=== PATIENT | male | born 1940 | race Caucasian/White ===

== ENCOUNTER → 2023-12-01 08:34 | Outpatient (REF) | payer MEDICARE, OTHER, SELFPAY ==
[2023-12-01 12:28] LABS: % Basophils 0.6 % (0-2); % Eosinophils 1.7 % (0-6); % Immature Granulocytes 1.1 % (0-0.5); % Lymphocytes 35.3 % (20.5-51.1); % Monocytes 11.1 % (1.7-9.3); % Neutrophils 50.2 % (42.2-75.2); Absolute Eosinophils 0.1 10^3/uL (0-0.7); Absolute Immature Granulocytes 0.1 10^3/uL (0-0.05); Absolute Lymphocytes 2.3 10^3/uL (1.2-3.4); Absolute Monocytes 0.7 10^3/uL (0.1-0.6); Absolute Neutrophils 3.3 10^3/uL (1.4-6.5); Hemoglobin 14.4 g/dL (13.0-18.0); Mean Corp Hgb Conc. 33.5 g/dL (33.0-37.0); Mean Corpuscular Hgb 31.2 pg (27.0-31.0); Mean Corpuscular Volume 93.3 fL (80.0-94.0); Mean Platelet Volume 10.2 fL (7.4-10.4); Nucleated Red Blood Cells % 0 % (-); Platelet Count 164 10^3/uL (130-400); Red Blood Cell Count 4.61 10^6/uL (4.70-6.10); Red Cell Dist. Width 13.8 % (11.5-14.5); White Blood Cell Count 6.5 10^3/uL (4.8-10.8)
[2023-12-01 12:34] LABS: Urine Albumin Negative (Neg - Trace); Urine Bilirubin Negative (Negative); Urine Character Clear (Clear); Urine Color Yellow; Urine Glucose Negative (Negative); Urine Ketone Negative (Negative); Urine Leukocyte Negative (Negative); Urine Nitrite Negative (Negative); Urine Occult Blood Negative (Negative); Urine Urobilinogen Negative (Neg - 1+)
[2023-12-01 12:45] LABS: ALT (SGPT) 19 U/L (0-50); AST (SGOT) 23 U/L (17-59); Albumin 3.9 g/dl (3.5-5.0); Alkaline Phosphatase 80 U/L (38-126); Blood Urea Nitrogen 21 mg/dl (9-20); Calcium 9.4 mg/dl (8.4-10.2); Carbon Dioxide 28 mmol/L (22-30); Chloride 104 mmol/L (98-107); Glucose 89 mg/dl (70-99); HDL Cholesterol 59 mg/dl; LDL Cholesterol, Calculated 65 mg/dl; Potassium 4.5 mmol/L (3.5-5.1); Sodium 139 mmol/L (135-145); Total Bilirubin 0.9 mg/dl (0.2-1.3); Total Cholesterol 138 mg/dl (50-199); Total Protein 6.6 g/dl (6.3-8.2); Triglyceride 74 mg/dl (10-149); Very Low Density Lipoprotein 14 mg/dl (0-30); eGFR > 60.00
[2023-12-01 12:58] LABS: Vitamin D, 25-OH*** 55.3 ng/mL (30-80)
[2023-12-01 13:12] LABS: PSA, Total - Screen 0.77 ng/ml (0.0-4.0)
== END ==
LOC: HWRAD 08:34
PROVIDERS: ATTENDING PHYSICIAN Internal Medicine Geriatric Medicine
DX: I48.21 Permanent atrial fibrillation (principal); I10 Essential (primary) hypertension; E78.2 Mixed hyperlipidemia; F41.1 Generalized anxiety disorder; K58.9 Irritable bowel syndrome, unspecified; N40.0 Benign prostatic hyperplasia without lower urinary tract symptoms; A69.20 Lyme disease, unspecified; E87.5 Hyperkalemia; Z13.89 Encounter for screening for other disorder; R19.09 Other intra-abdominal and pelvic swelling, mass and lump; Z12.5 Encounter for screening for malignant neoplasm of prostate
CPT/HCPCS: 36415; 74176; 80053; 80061; 81003; 82306; 85025; G0103

== ENCOUNTER → 2024-12-17 09:56 | Outpatient (REF) | payer MEDICARE, OTHER, SELFPAY ==
[2024-12-17 15:11] LABS: Urine Character Clear (Clear)
[2024-12-17 15:12] LABS: Hematocrit 46.7 % (39.0-52.0); Hemoglobin 15.3 g/dL (13.0-18.0); Mean Corp Hgb Conc. 32.8 g/dL (33.0-37.0); Mean Corpuscular Volume 93.2 fL (80.0-94.0); Nucleated Red Blood Cells % 0 % (-); Platelet Count 151 10^3/uL (130-400); Red Cell Dist. Width 14.5 % (11.5-14.5)
[2024-12-17 15:20] LABS: ALT (SGPT) 20 U/L (0-50); AST (SGOT) 21 U/L (17-59); Albumin 3.9 g/dl (3.5-5.0); Alkaline Phosphatase 103 U/L (38-126); Blood Urea Nitrogen 25 mg/dl (9-20); Calcium 9.6 mg/dl (8.4-10.2); Carbon Dioxide 30 mmol/L (22-30); Chloride 105 mmol/L (98-107); Glucose 93 mg/dl (70-99); HDL Cholesterol 54 mg/dl; LDL Cholesterol, Calculated 60 mg/dl; Potassium 4.8 mmol/L (3.5-5.1); Sodium 137 mmol/L (135-145); Total Protein 6.8 g/dl (6.3-8.2); Very Low Density Lipoprotein 20 mg/dl (0-30); eGFR 54.17
[2024-12-17 15:25] LABS: Urine Squamous Cell 0-2 /LPF (Few)
[2024-12-17 15:26] LABS: Urine Red Blood Cell 0-2 /HPF (0-2); Urine White Cell 0-2 /HPF (0-5)
[2024-12-17 15:38] LABS: Vitamin D, 25-OH*** 56.2 ng/mL (30-80)
[2024-12-17 15:52] LABS: PSA, Total - Screen 0.93 ng/ml (0.0-4.0); TSH 2.44 uIU/ml (0.47-4.68)
== END ==
LOC: HWLAB 09:56
PROVIDERS: ATTENDING PHYSICIAN Internal Medicine Geriatric Medicine
DX: Z79.899 Other long term (current) drug therapy (principal); Z00.00 Encounter for general adult medical examination without abnormal findings; R79.9 Abnormal finding of blood chemistry, unspecified; R79.89 Other specified abnormal findings of blood chemistry; R82.90 Unspecified abnormal findings in urine; I10 Essential (primary) hypertension; E03.8 Other specified hypothyroidism; I48.21 Permanent atrial fibrillation; Z12.5 Encounter for screening for malignant neoplasm of prostate
CPT/HCPCS: 36415; 80053; 80061; 81003; 81015; 82306; 84439; 84443; 85025; G0103